=== PATIENT | male | born 2000 | race Caucasian/White ===

== ENCOUNTER 2019-01-29 03:49 | Emergency (ER) | payer BC, MEDICAID ==
[2019-01-29 03:59] LABS: ADD MAN DIFF? NO
[2019-01-29 04:07] LABS: ABNORMAL IP MESSAGE 1; BASOPHIL # 0.1 10^3/ul (0.0-0.1); BASOPHILS % 0.4 % (0.0-2.0); EOSINOPHILS # 0.2 10^3/ul (0.0-0.5); EOSINOPHILS % 1.7 % (0.0-7.0); HEMATOCRIT 42.6 % (42.0-52.0); LYMPHOCYTES # 5.7 10^3/ul (0.8-2.9); LYMPHOCYTES % 40.5 % (18.0-55.0); MEAN CORPUSCULAR HGB CONC 32.9 g/dl (32.0-37.0); MEAN CORPUSCULAR VOLUME 88.2 fl (72.0-104.0); MEAN PLATELET VOLUME 11.7 fl (7.4-10.4); MONOCYTE # 0.8 10^3/ul (0.3-0.9); MONOCYTES % 5.6 % (0.0-13.0); NEUTROPHIL # 7.1 10^3/ul (1.6-7.5); NEUTROPHILS % 50.7 % (30.0-74.0); PLATELET COUNT 213 10^3/UL (140-415); POSITIVE DIFF @See below; RED BLOOD COUNT 4.83 10^6/ul (4.70-6.10); RED CELL DISTRIBUTION WIDTH 13.2 % (11.5-14.5)
[2019-01-29 04:19] LABS: ANION GAP 14 (5-13); BLOOD UREA NITROGEN 9 mg/dl (7-20); CALCIUM 9.3 mg/dl (8.4-10.2); CARBON DIOXIDE 24 mmol/L (21-31); CHLORIDE 105 mmol/L (97-110); CREATININE 1.19 mg/dl (0.61-1.24); Estimated GFR > 60 mL/min (>60); GLUCOSE 133 mg/dl (70-220); POTASSIUM 3.7 mmol/L (3.5-5.1); SODIUM 143 mmol/L (135-144)
[2019-01-29 04:21] LABS: INR 1.03; PROTIME 13.6 Sec (11.9-14.9); PT RATIO 1.1
[2019-01-29 04:32] LABS: ETHANOL < 10.0 mg/dl (0-0)
[2019-01-29] MEDS: SOD CHLORIDE 0.9% 100 ML (04:48)
[2019-01-29] MEDS: IOHEXOL 300MG/ML 150 ML BTL (04:48)
[2019-01-29 05:25] LABS: PARTIAL THROMBOPLASTIN TIME 23.5 Sec (23.0-35.0)
[2019-01-29] MEDS: ONDANSETRON 4 MG INJ IV (05:38)
[2019-01-29] MEDS: morphine 4 MG/ML VIAL IV (05:38)
== END 2019-01-29 06:34 | disposition home or self-care (01) ==
LOC: E/R 03:49
DX: R10.30 Lower abdominal pain, unspecified (principal); R40.2142 Coma scale, eyes open, spontaneous, at arrival to emergency department; R40.2362 Coma scale, best motor response, obeys commands, at arrival to emergency department; R40.2252 Coma scale, best verbal response, oriented, at arrival to emergency department; R93.0 Abnormal findings on diagnostic imaging of skull and head, not elsewhere classified
CPT/HCPCS: 36415; 70450; 70486; 71260; 72125; 74177; 80048; 80307; 85025; 85610; 85730; 96374; 96375; 99285-25